=== PATIENT | female | born 1995 | race Caucasian/White ===

== ENCOUNTER 2018-11-26 14:19 | Inpatient (IN) | payer SELFPAY ==
[2018-11-26 14:29] VITALS: BMI 32.4
[2018-11-26] MEDS: Lactated Ringers 1,000 ML 50 ML IV (15:15)
[2018-11-26] MEDS: Oxytocin 30 units/NS 500 ml 30 UNITS/500 ML IV.SOLN IV (15:32)
--- NOTE | 2018-11-26 15:40 | PCM.HP.OB ---
- Problem List (1) Prolonged rupture of membranes Status: Acute History Date of Admission: 11/26/18 Final HELDER: 12/11/18 Gestational age: 37 Weeks and 6 Days History of this : This is a 23 year-old, G 1P0 at 37 weeks weeks gestational age with spontaneous rupture of membranes 19 hours. Patient has had irregular contractions but has had a stall in her labor progress. 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 She denies any fevers or significant abdominal pain outside of contractions. She has had normal blood pressures and has not had any testing other than hemoglobins via fingerstick and urinalysis for protein and glucose which have been negative. Fundal heights have been appropriate slightly small for gestational age throughout the . Allergies No Known Allergies Allergy (Verified 11/26/18 14:30) Home Medications: Home Medications Iron 1 tab PO DAILY 11/26/18 Vits [Prenatabs FA ] 1 tab PO DAILY 11/26/18 Smoking Status: Never smoker Alcohol: None Number of Fetus(es): 1 Heart Tracin moderate variability reactive no decelerations category I tracing [place]: irregular History Past Pregnancies: Past Pregnancies Delivery Date Name GA/Weeks Outcome Route Weight Infant Gender Labor Length Anesthesia Delivery Location Provider FOB Labs: Mom's Labs & Results 11/26/18 11/26/18 11/26/18 15:15 15:15 15:15 WBC Pending RBC Pending Hgb Pending Hct Pending MCV Pending MCH Pending MCHC Pending RDW Pending RDW Differential Pending Plt Count Pending Neut % (Auto) Pending Absolute Neuts (auto) Pending Total Counted Pending RPR Pending Hep Bs Antigen Hepatitis C Ab (EIA) HIV 1&2 Antibody Rubella IgG Antibody Pending Blood Type Antibody Screen 11/26/18 11/26/18 11/26/18 15:15 15:15 15:15 WBC RBC Hgb Hct MCV MCH MCHC RDW RDW Differential Plt Count Neut % (Auto) Absolute Neuts (auto) Total Counted RPR Hep Bs Antigen Pending Hepatitis C Ab (EIA) Pending HIV 1&2 Antibody Pending Rubella IgG Antibody Blood Type Pending Antibody Screen Pending Expected Infant Delivery Method: Spontaneous Vaginal Review of Systems Constitutional: Denies: Fever, Malaise Eyes: Denies: Blurred vision, Vision Change HEENT: Denies: Head Aches, Visual Changes Cardiovascular: Denies: Chest Pain, Palpitations Respiratory: Denies: Cough, Shortness of Breath, Wheezing Gastrointestinal: Denies: Abdominal Pain, Diarrhea, Nausea, Vomiting Genitourinary: Denies: Dysuria, Hematuria Gynecological: Reports: Vaginal bleeding, Vaginal discharge Musculoskeletal: Denies: Joint Pain, Muscle pain Skin: Denies: Lesions, Rash Neurological: Denies: Blurred vision, Focal weakness, Headaches Psychiatric: Denies: Anxiety, Depression Endocrine: Denies: Heat/ Cold Intolerance Hematologic/ Lymphatic: Denies: Easy Bruising, Easy Bleeding Physical Exam General: Alert, Cooperative, No apparent distress HEENT: Atraumatic, Normocephalic. Negative for: Thyromegaly, Lymphadenopathy Cardiovascular: Regular rate Lungs: Normal air movement Abdomen: Soft, Non Tender, Gravid Neurological: Deep Tendon Reflexes 2+/4 and Symmetrical, Neuro grossly intact. Negative for: Clonus UROLOGIC NURSE: Normal external genitalia. Negative for: Vulvar lesions Estimated gestational size: Appropriate for gestational size Presentation: Cephalic Cervix Dilation (cm): 5 Station: -1 Effacement (%): 80 Assessment/Plan All Active Problems Prolonged rupture of membranes (Acute) This is a 23 year-old, at 37 weeks gestational age presnts with PROM plan starting ampicillin for antibiotic prophylaxis, no signs of chorioamnionitis. will draw panel. pitocin per protocol
--- NOTE | 2018-11-26 15:44 | HP.PCM_ITS ---
- Problem List (1) Prolonged rupture of membranes Status: Acute History Date of Admission: 11/26/18 Final HELDER: 12/11/18 Gestational age: 37 Weeks and 6 Days History of this : This is a 23 year-old, G 1P0 at 37 weeks weeks gestational age with spontaneous rupture of membranes 19 hours. Patient has had irregular contractions but has had a stall in her labor progress. 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 She denies any fevers or significant abdominal pain outside of contractions. She has had normal blood pressures and has not had any testing other than hemoglobins via fingerstick and urinalysis for protein and glucose which have been negative. Fundal heights have been appropriate slightly small for gestational age throughout the . Allergies No Known Allergies Allergy (Verified 11/26/18 14:30) Home Medications: Home Medications Iron 1 tab PO DAILY 11/26/18 Vits [Prenatabs FA ] 1 tab PO DAILY 11/26/18 Smoking Status: Never smoker Alcohol: None Number of Fetus(es): 1 Heart Tracin moderate variability reactive no decelerations category I tracing [place]: irregular History Past Pregnancies: Past Pregnancies Delivery Date Name GA/Weeks Outcome Route Weight Infant Gender Labor Length Anesthesia Delivery Location Provider FOB Labs: Mom's Labs & Results 11/26/18 11/26/18 11/26/18 15:15 15:15 15:15 WBC Pending RBC Pending Hgb Pending Hct Pending MCV Pending MCH Pending MCHC Pending RDW Pending RDW Differential Pending Plt Count Pending Neut % (Auto) Pending Absolute Neuts (auto) Pending Total Counted Pending RPR Pending Hep Bs Antigen Hepatitis C Ab (EIA) HIV 1&2 Antibody Rubella IgG Antibody Pending Blood Type Antibody Screen 11/26/18 11/26/18 11/26/18 15:15 15:15 15:15 WBC RBC Hgb Hct MCV MCH MCHC RDW RDW Differential Plt Count Neut % (Auto) Absolute Neuts (auto) Total Counted RPR Hep Bs Antigen Pending Hepatitis C Ab (EIA) Pending HIV 1&2 Antibody Pending Rubella IgG Antibody Blood Type Pending Antibody Screen Pending Expected Infant Delivery Method: Spontaneous Vaginal Review of Systems Constitutional: Denies: Fever, Malaise Eyes: Denies: Blurred vision, Vision Change HEENT: Denies: Head Aches, Visual Changes Cardiovascular: Denies: Chest Pain, Palpitations Respiratory: Denies: Cough, Shortness of Breath, Wheezing Gastrointestinal: Denies: Abdominal Pain, Diarrhea, Nausea, Vomiting Genitourinary: Denies: Dysuria, Hematuria Gynecological: Reports: Vaginal bleeding, Vaginal discharge Musculoskeletal: Denies: Joint Pain, Muscle pain Skin: Denies: Lesions, Rash Neurological: Denies: Blurred vision, Focal weakness, Headaches Psychiatric: Denies: Anxiety, Depression Endocrine: Denies: Heat/ Cold Intolerance Hematologic/ Lymphatic: Denies: Easy Bruising, Easy Bleeding Physical Exam General: Alert, Cooperative, No apparent distress HEENT: Atraumatic, Normocephalic. Negative for: Thyromegaly, Lymphadenopathy Cardiovascular: Regular rate Lungs: Normal air movement Abdomen: Soft, Non Tender, Gravid Neurological: Deep Tendon Reflexes 2+/4 and Symmetrical, Neuro grossly intact. Negative for: Clonus CASH MANAGEMENT COORDINATOR: Normal external genitalia. Negative for: Vulvar lesions Estimated gestational size: Appropriate for gestational size Presentation: Cephalic Cervix Dilation (cm): 5 Station: -1 Effacement (%): 80 Assessment/Plan All Active Problems Prolonged rupture of membranes (Acute) This is a 23 year-old, at 37 weeks gestational age presnts with PROM plan starting ampicillin for antibiotic prophylaxis, no signs of chorioamnionitis. will draw panel. pitocin per protocol
[2018-11-26 16:09] LABS: Absolute Lymphocyte Count 2.15 X10^3/ul (0.83-4.51); Absolute Neutrophil Count 9.4 X10^3/uL (2.0-7.7); Basophil# 0.02 X10^3/uL; Basophil% 0.2 % (0-1); Eosinophil# 0.14 X10^3/uL; Eosinophils% 1.1 % (0-5); Hematocrit 35.1 % (37-47); Hemoglobin 11.8 g/dl (12.0-15.0); Lymphocyte # 2.15 X10^3/ul (4.0); Lymphocyte % 17.2 % (19-41); Mean Corp Hgb Conc 33.6 g/gl (32-36); Mean Corpuscular Hgb 28.9 pg (27.0-32.0); Mean Corpuscular Volume 85.8 fL (81-99); Mean Platelet Vol. 9.7 fl (6.2-12.0); Monocyte# 0.74 X10^3/uL; Monocyte% 5.9 % (0-10); Neutrophil # 9.39 X10^3/uL (2.7-7.7); Neutrophil % 75.4 % (47-70); Platelet Count 349 K/mm3 (150-450); RBC Distribution Width CV 13.6 % (11.6-14.6); RBC Distribution Width SD 42.7 fl (35.1-43.9); Red Blood Count 4.09 M/mm3 (4.2-5.4); White Blood Count 12.5 K/mm3 (4.4-11.0)
[2018-11-26 16:11] LABS: POSITIVE COUNT NO; POSITIVE DIFFERENTIAL NO; POSITIVE MORPHOLOGY NO
[2018-11-26 16:33] LABS: Rubella IgG 47.3 IU/mL
[2018-11-26 17:08] LABS: HIV - WCH Non-Reactive (Nonreactive)
[2018-11-26 17:08] LABS: Group B Strep DNA By PCR Negative (Negative); Internal Control PASS; Probe Check PASS; Specimen Processing Control PASS
[2018-11-26 17:09] LABS: Mucous, Urine 0 SEEN /hpf (<or=2+)
[2018-11-26 17:24] LABS: Color, Urine Yellow (Yellow); Glucose, Dipstick Normal (Normal); Ketone-Dipstick 50 mg/dl (Negative); Leukocyte Esterase-Dipstick 500 /ul (Negative); Nitrite-Dipstick Negative (Negative); Occult Blood-Urine 250 /ul (Negative); Protein-Dipstick 15 mg/dl (Negative); Specific Gravity, Urine 1.015 (1.002-1.030); Urine Bilirubin Dipstick Negative (Negative); Urine Clarity Sl. Cloudy (Clear); Urine Urobilinogen Normal (Normal)
[2018-11-26 17:30] LABS: Amphetamine Urine VISTA NEGATIVE (<1000 ng/mL); Barbiturate Urine VISTA NEGATIVE (< 200 ng/mL); Benzodiazepine Urine VISTA NEGATIVE (< 200 ng/mL); Cocaine Urine VISTA NEGATIVE (< 300 ng/mL); Ecstacy Urine VISTA NEGATIVE (< 500 ng/mL); Methadone Urine VISTA NEGATIVE (< 300 ng/mL); PCP Urine VISTA NEGATIVE (< 25 ng/mL); THC Urine VISTA NEGATIVE (< 50 ng/mL); Vista UDS pH Range 6
[2018-11-26 17:37] LABS: Chlamydia Trachomatis by PCR Negative (Negative); Neisserai gonorrhoeae by PCR Negative (Negative); Probe Check PASS; Sample Adequacy Control PASS; Specimen Processing Control PASS
[2018-11-26 17:46] LABS: Red Blood Cells-Urine 50-100 SEEN /hpf (0-5)
[2018-11-26 17:47] LABS: Bacteria RARE /hpf (None Seen); Squamous Epithelial Cells - UA 0-5 SEEN /hpf (5-10); White Blood Cells 10-25 SEEN /hpf (0-5)
[2018-11-26] MEDS: Nalbuphine 10 MG/ML Ampul IV (19:03)
--- NOTE | 2018-11-26 20:34 | OP.PCM_ITS ---
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 The head was delivered atraumatically. The anterior and posterior shoulders delivered without complication followed by the rest of the infant and the infant was placed on the maternal abdomen. Delayed cord clamping was employed for approximately 60 seconds. Cord was clamped and cut and gentle traction was a pplied to the cord and the placenta delivered spontaneously immediately following it was noted to be intact with three-vessel cord. The perineum and vagina were inspected and noted to have a small vaginal perineal laceration first-degree that was hemostatic and did not require repair. EBL was 300 cc. Patient and infant tolerated delivery well. Presentation: MARK Placental Delivery Description: Spontaneous Placenta Disposition: [facility]
[2018-11-26] MEDS: Oxytocin 30 units/NS 500 ml 30 UNITS/500 ML IV.SOLN 334 UNITS IV (20:46)
[2018-11-26] MEDS: Oxytocin 30 units/NS 500 ml 30 UNITS/500 ML IV.SOLN 167 UNITS IV (21:16)
[2018-11-27 00:05] VITALS: BP 106/64; PULSE 104; RESP 17
[2018-11-27 02:00] VITALS: BP 128/81; PULSE 63; RESP 18; TEMP 36.6
[2018-11-27 07:50] VITALS: BP 118/71; PULSE 75; RESP 16; TEMP 36.7; O2SAT 97
--- NOTE | 2018-11-27 08:11 | PN.OBGYN_ITS ---
Patient Problems: Active and Suspected Problems Prolonged rupture of membranes (Acute) Subjective: doing well no complaints pain controlled no CP SOB N V ambulating well tolerating po lochia moderate, going well - Physical Exam General: Alert, Oriented x3 Abdomen: Soft, Non Tender, - - FF below U Vital Signs Temp Pulse Resp BP 97.8 F 63 18 128/81 H 11/27/18 02:00 11/27/18 02:00 11/27/18 02:00 11/27/18 02:00 Weight: 189 lb Body Mass Index (BMI) 32.4 Intake and Output for Last 24 Hours 11/25/18 11/26/18 11/27/18 23:59 23:59 23:59 Intake Total 1876 Output Total 500 / 500 Balance 1876 -500 / -500 Laboratory Tests Past 24 Hrs 11/26/18 11/26/18 11/26/18 15:15 15:15 15:15 WBC 12.5 H RBC 4.09 L Hgb 11.8 L Hct 35.1 L MCV 85.8 MCH 28.9 MCHC 33.6 RDW 13.6 RDW Differential 42.7 Plt Count 349 MPV 9.7 Immature Gran % (Auto) 0.200 Neut % (Auto) 75.4 H Lymph % (Auto) 17.2 L [place] % (Auto) 5.9 Eos % (Auto) 1.1 Baso % (Auto) 0.2 Absolute Neuts (auto) 9.4 H Absolute Lymphs (auto) 2.15 Total Counted Not Reportable Urine Color Urine Clarity Urine pH Ur Specific [place] Urine Protein Urine Glucose (UA) Urine Ketones Urine Occult Blood Urine Nitrite Urine Bilirubin Urine Urobilinogen Ur Leukocyte Esterase Urine RBC Urine WBC Ur Squamous Epith Cells Urine Bacteria Urine Mucus Urine Opiates Screen Urine Methadone Screen Ur Barbiturates Screen Ur Phencyclidine Scrn Ur Amphetamines Screen U Methamphetamin-MDMA U Benzodiazepines Scrn Urine Cocaine Screen U Cannabinoids Screen Ur Drug Screen Comment RPR Pending Chlam trachomat DNA PCR Hep Bs Antigen Hepatitis C Ab (EIA) HIV 1&2 Antibody N.gonorrhoeae DNA (PCR) Rubella IgG Antibody 47.3 Group B Strep DNA Specimen Comment Blood Type Antibody Screen 11/26/18 11/26/18 11/26/18 15:15 15:15 15:15 WBC RBC Hgb Hct MCV MCH MCHC RDW RDW Differential Plt Count MPV Immature Gran % (Auto) Neut % (Auto) Lymph % (Auto) [place] % (Auto) Eos % (Auto) Baso % (Auto) Absolute Neuts (auto) Absolute Lymphs (auto) Total Counted Urine Color Urine Clarity Urine pH Ur Specific [place] Urine Protein Urine Glucose (UA) Urine Ketones Urine Occult Blood Urine Nitrite Urine Bilirubin Urine Urobilinogen Ur Leukocyte Esterase Urine RBC Urine WBC Ur Squamous Epith Cells Urine Bacteria Urine Mucus Urine Opiates Screen Urine Methadone Screen Ur Barbiturates Screen Ur Phencyclidine Scrn Ur Amphetamines Screen U Methamphetamin-MDMA U Benzodiazepines Scrn Urine Cocaine Screen U Cannabinoids Screen Ur Drug Screen Comment RPR Chlam trachomat DNA PCR Hep Bs Antigen Pending Hepatitis C Ab (EIA) Pending HIV 1&2 Antibody Non-Reactive N.gonorrhoeae DNA (PCR) Rubella IgG Antibody Group B Strep DNA Specimen Comment Blood Type B POSITIVE Antibody Screen NEGATIVE 11/26/18 11/26/18 11/26/18 15:40 17:00 17:00 WBC RBC Hgb Hct MCV MCH MCHC RDW RDW Differential Plt Count MPV Immature Gran % (Auto) Neut % (Auto) Lymph % (Auto) [place] % (Auto) Eos % (Auto) Baso % (Auto) Absolute Neuts (auto) Absolute Lymphs (auto) Total Counted Urine Color Yellow Urine Clarity Sl. Cloudy Urine pH 6.0 Ur Specific [place] 1.015 Urine Protein 15 H Urine Glucose (UA) Normal Urine Ketones 50 H Urine Occult Blood 250 H Urine Nitrite Negative Urine Bilirubin Negative Urine Urobilinogen Normal Ur Leukocyte Esterase 500 H Urine RBC 50-100 SEEN Urine WBC 10-25 SEEN Ur Squamous Epith Cells 0-5 SEEN Urine Bacteria RARE Urine Mucus 0 SEEN Urine Opiates Screen NEGATIVE Urine Methadone Screen NEGATIVE Ur Barbiturates Screen NEGATIVE Ur Phencyclidine Scrn NEGATIVE Ur Amphetamines Screen NEGATIVE U Methamphetamin-MDMA NEGATIVE U Benzodiazepines Scrn NEGATIVE Urine Cocaine Screen NEGATIVE U Cannabinoids Screen NEGATIVE Ur Drug Screen Comment RPR Chlam trachomat DNA PCR Negative Hep Bs Antigen Hepatitis C Ab (EIA) HIV 1&2 Antibody N.gonorrhoeae DNA (PCR) Negative Rubella IgG Antibody Group B Strep DNA Negative Specimen Comment Not Reportable Blood Type Antibody Screen Medical Necessity - Tobacco Use Smoking Status: Never smoker Assessment/Plan All Active Problems Prolonged rupture of membranes (Acute) s/p PPD # 1 1. routine post delivery care 2. breast feeding- support given 3. rh positive 4. rubella immune 5. Home today
--- NOTE | 2018-11-27 08:11 | PCM.DC.VHY ---
Allergies/Adverse Reactions: Allergies No Known Allergies Allergy (Verified 11/26/18 14:30) Medications to take at Discharge Iron 1 tab PO DAILY 11/26/18 Vits [Prenatabs FA ] 1 tab PO DAILY 11/26/18 Primary Care Physician: Coretta Early,Out of [Primary Care Provider] - Test Results: Test results from this visit will be discussed in further detail at your follow-up appointment, if applicable.
--- NOTE | 2018-11-27 08:13 | PCM.DCVAG ---
Additional Instructions: If you experience any of the following, contact your healthcare provider. Bleeding that soaks a pad every hour for 2 hours Fever 100.4 or higher Unrelieved incision or abdominal pain Swelling, redness, discharge or bleeding from your incision or episiotomy site Your incision begins to separate Problems urinating (including inability to urinate or burning while urinating). Visual changes Severe headache Flu-like symptoms Pain or redness in one of both of your breasts Pain, warmth, tenderness or swelling in your legs, especially the calf area Frequent nausea and vomiting Symptoms of depression or anxiety If you experience any of the following, call 911 or go to the nearest Emergency Room. Chest pain Problems breathing Seizure activity Partial or complete paralysis of a body part, slurred speech, weakness or drooping of the face, or a sudden inability to walk or hold your balance Allergies/Adverse Reactions: Allergies No Known Allergies Allergy (Verified 11/26/18 14:30) Medications to take at Discharge Iron 1 tab PO DAILY 11/26/18 Vits [Prenatabs FA ] 1 tab PO DAILY 11/26/18 Primary Care Physician: Coretta Early,Out of [Primary Care Provider] - Test Results: Test results from this visit will be discussed in further detail at your follow-up appointment, if applicable.
--- NOTE | 2018-11-27 08:14 | DCINST_ITS ---
Additional Instructions: If you experience any of the following, contact your healthcare provider. * Bleeding that soaks a pad every hour for 2 hours * Fever 100.4 or higher * Unrelieved incision or abdominal pain * Swelling, redness, discharge or bleeding from your incision or episiotomy site * Your incision begins to separate * Problems urinating (including inability to urinate or burning while urinating). * Visual changes * Severe headache * Flu-like symptoms * Pain or redness in one of both of your breasts * Pain, warmth, tenderness or swelling in your legs, especially the calf area * Frequent nausea and vomiting * Symptoms of depression or anxiety If you experience any of the following, call 911 or go to the nearest Emergency Room. * Chest pain * Problems breathing * Seizure activity * Partial or complete paralysis of a body part, slurred speech, weakness or drooping of the face, or a sudden inability to walk or hold your balance Allergies/Adverse Reactions: Allergies No Known Allergies Allergy (Verified 11/26/18 14:30) Medications to take at Discharge Iron 1 tab PO DAILY 11/26/18 Vits [Prenatabs FA ] 1 tab PO DAILY 11/26/18 Primary Care Physician: Coretta Early,Out of [Primary Care Provider] - Test Results: Test results from this visit will be discussed in further detail at your follow- up appointment, if applicable.
[2018-11-27 12:20] VITALS: BP 127/75; PULSE 82; RESP 16; TEMP 36.6; O2SAT 97
[2018-11-27 15:46] VITALS: BP 117/76; PULSE 99; RESP 14; TEMP 36.4; O2SAT 99
[2018-11-27 20:45] VITALS: BP 133/80; PULSE 84; RESP 16; TEMP 36.3
[2018-11-28 15:07] LABS: HEPATITIS B SURFACE AG Negative (Negative); Hep C Antibodies <0.1 s/co ratio (0.0-0.9)
[2018-11-29 01:30] LABS: Rapid Plasmin Reagin (RPR) NONREACTIVE (NONREACTIVE)
== END 2018-11-27 23:11 | disposition home or self-care (01) | DRG 807 ==
PROVIDERS: Admitting Provider Obstetrics & Gynecology; Referring Provider Obstetrics & Gynecology; Visit Provider Obstetrics & Gynecology
DX: O42.02 Full-term premature rupture of membranes, onset of labor within 24 hours of rupture (principal); Z37.0 Single live birth; O70.0 First degree perineal laceration during delivery; Z3A.37 37 weeks gestation of pregnancy
CPT/HCPCS: 59050; 80307; 81001; 85025; 86592; 86703; 86762; 86803; 86850; 86900; 87081; 87340; 87491; 87591; 87653; 99218; J7120; G0378

== ENCOUNTER → 2023-01-19 | Outpatient (CLI) | payer SELFPAY ==
--- NOTE | 2023-01-19 13:14 | US_ITS ---
STUDY: SECOND AND THIRD TRIMESTER OBSTETRICAL ULTRASOUND - LIMITED REASON FOR EXAM: Female, 27 years old new care LMP: Not provided PRIOR ULTRASOUND: None. TECHNIQUE: Standard TECHNICAL QUALITY: Adequate. FINDINGS: There is a single intrauterine fetus. The fetus is in a cephalic presentation. There is demonstrated cardiac activity with a heart rate of 146 bpm. There is a normal amniotic fluid volume. The largest amniotic fluid pocket measures 2.7 x 5 point cm. The placenta is left lateral not low-lying There are Grade 0 placental changes. The cervix measures 4.2 cm in length. BIOMETRY: BPD: 8.99 cm: 36 weeks, 3 days HC: 32.94 cm: 37 weeks, 3 days AC: 30.29 cm: 34 weeks, 2 days FL: 6.68 cm: 34 weeks, 3 days age by current US: 36 weeks, 1 days. HELDER by current US: . Estimated weight: 2510 grams, +/- 377 grams, 24 percentile. US/OB Limited With Biometrics IMPRESSION: Viable intrauterine gestation. Mean gestational age based upon ultrasound parameters 36 weeks 1 day. Electronically Signed: Mat Connolly MD, [place] at 22:40 EDT ,
--- NOTE | 2023-01-19 13:14 | US_ITS ---
STUDY: OBSTETRICAL ULTRASOUND - BIOPHYSICAL PROFILE TWIN BABY A. REASON FOR EXAM: Female, 27 years old new care twin . LMP: Not provided. PRIOR ULTRASOUND: None. TECHNIQUE: Standard. TECHNICAL QUALITY: Adequate. FINDINGS: There is a single intrauterine fetus. The fetus is in a cephalic presentation. There is demonstrated cardiac activity with a heart rate of 148 bpm. There is a normal amniotic fluid volume. The largest amniotic fluid pocket measures 5.5 cm. The amniotic fluid index (JOURDAN) is 2.60 cm. The placenta is left lateral and not low-lying. There are Grade 2 placental changes. Age by LMP: 35 weeks, 5 days. HELDER by LMP: 02/18/2023.. age by prior US: 36 weeks, 1 days. HELDER by prior US: 02/15/2023. age by current US: 36 weeks, 1 days. HELDER by current US: 02/20/2023. Gender: BIOPHYSICAL PROFILE: Breathing Movements (FBM): 2 Gross Body Movements (GBM): 2 Tone (FT): 2 Amniotic Fluid Volume (AFV): 2 TOTAL SCORE: 8 / 8 IMPRESSION: Normal twin baby A biophysical profile of 8/8. Electronically Signed: Chang Diallo MD at 15:03 EDT , STUDY: OBSTETRICAL ULTRASOUND - BIOPHYSICAL PROFILE TWIN BABY B REASON FOR EXAM: Female, 27 years old new care twin . LMP: Not provided. PRIOR ULTRASOUND: None. TECHNIQUE: Standard. TECHNICAL QUALITY: Adequate. FINDINGS: There is a single intrauterine fetus. The fetus is in left oblique lie position. There is demonstrated cardiac activity with a heart rate of 136 bpm. There is a normal amniotic fluid volume. The largest amniotic fluid pocket measures 4.27 cm. The amniotic fluid index (JOURDAN) is 3.08 cm. The placenta is anterior and not low-lying. There are Grade 1 placental changes. Age by LMP: 35 weeks, 5 days. HELDER by LMP: 02/18/2023. age by prior US: 35 weeks, 3 days. HELDER by prior US: 02/20/2023. age by current US: 35 weeks, 3 days. HELDER by current US: 02/20/2023. Gender: BIOPHYSICAL PROFILE: Breathing Movements (FBM): 2 Gross Body Movements (GBM): 2 Tone (FT): 2 Amniotic Fluid Volume (AFV): 2 TOTAL SCORE: US/Biophysical Prof W/O Non Stres IMPRESSION: Normal biophysical profile of 04/10. Electronically Signed: Chang Diallo MD at 15:07 EDT ,
[2023-01-19 14:38] LABS: Absolute Lymphocyte Count 2.19 X10^3/uL (0.83-4.51); Absolute Neutrophil Count 5.6 X10^3/uL (2.0-7.7); Basophil# 0.04 X10^3/uL; Basophil% 0.5 % (0-1); Eosinophil# 0.14 X10^3/uL; Eosinophils% 1.6 % (0-5); Hematocrit 36.2 % (37-47); Hemoglobin 11.3 g/dL (12.0-15.0); Lymphocyte # 2.19 X10^3/ul (0.83-4.51); Lymphocyte % 25.6 % (19-41); Mean Corp Hgb Conc 31.2 g/dL (32-36); Mean Corpuscular Hgb 28.6 pg (27.0-32.0); Mean Corpuscular Volume 91.6 fL (81-99); Mean Platelet Vol. 10.9 fl (6.2-12.0); Monocyte# 0.55 X10^3/uL; Monocyte% 6.4 % (0-10); NRBC Flagged by Analyzer 0 % (0-5); Neutrophil % 65.5 % (47-70); Platelet Count 239 K/mm3 (150-450); RBC Distribution Width CV 14.9 % (11.6-14.6); RBC Distribution Width SD 49.9 fl (35.1-43.9); Red Blood Count 3.95 M/mm3 (4.2-5.4); White Blood Count 8.6 K/mm3 (4.4-11.0)
[2023-01-19 15:54] LABS: Glucose Challenge Gest 1H 50g 90 mg/dL (70-140)
[2023-01-19 16:19] LABS: HIV - WCH Non-Reactive (Nonreactive); Hepatitis B Surface Antigen Non-Reactive (Nonreactive); Hepatitis C Antibody Non-Reactive (Nonreactive); Rubella IgG Reactive (Nonreactive); Syphilis Antibodies Non-reactive
== END | disposition home or self-care (01) ==
PROVIDERS: Referring Provider Obstetrics & Gynecology; Visit Provider Obstetrics & Gynecology
DX: Z34.90 Encounter for supervision of normal pregnancy, unspecified, unspecified trimester (principal); Z3A.35 35 weeks gestation of pregnancy
CPT/HCPCS: 36415; 76816; 76819; 82950; 85025; 86703; 86762; 86780; 86803; 86850; 86900; 86901; 87086; 87088; 87340

== ENCOUNTER → 2023-01-26 | Outpatient (CLI) | payer SELFPAY ==
--- NOTE | 2023-01-26 12:01 | US_ITS ---
STUDY: OBSTETRICAL ULTRASOUND - twin ultrasound, twin A REASON FOR EXAM: Female, 27 years old wellbeing LMP: Unknown. PRIOR ULTRASOUND: 01/19/2023 TECHNIQUE: Transabdominal and Transvaginal TECHNICAL QUALITY: Adequate. FINDINGS: There is a single intrauterine fetus. The fetus is in a cephalic presentation. There is demonstrated cardiac activity with a heart rate of 147 bpm. There is a normal amniotic fluid volume. The largest amniotic fluid pocket measures 4.1 x 4 cm. The placenta is left lateral, not low-lying There are Grade 2 placental changes. age by prior US: 37 weeks, 1 days. HELDER by prior US: 02/18/2023. BIOPHYSICAL PROFILE: Breathing Movements (FBM): 2 Gross Body Movements (GBM): 2 Tone (FT): 2 Amniotic Fluid Volume (AFV): 2 TOTAL SCORE: 8 / 8 IMPRESSION: Normal biophysical profile of 8/8. Electronically Signed: Fredy Levine MD at 10:55 EDT , STUDY: OBSTETRICAL ULTRASOUND - BIOPHYSICAL PROFILE twin gestation, baby B REASON FOR EXAM: Female, 27 years old wellbeing LMP: Unknown. PRIOR ULTRASOUND: 01/19/2023 TECHNIQUE: Transabdominal TECHNICAL QUALITY: Adequate. FINDINGS: There is a single intrauterine fetus. The fetus is in a breech presentation. There is demonstrated cardiac activity with a heart rate of 135 bpm. There is a normal amniotic fluid volume. The largest amniotic fluid pocket measures 4.8 x 3.5 cm. The placenta is anterior in location and is not low lying. There are Grade 1 placental changes. age by prior US: 36 weeks, 3 days. HELDER by prior US: 02/20/2023. BIOPHYSICAL PROFILE: Breathing Movements (FBM): 2 Gross Body Movements (GBM): 2 Tone (FT): 2 Amniotic Fluid Volume (AFV): 2 TOTAL SCORE: US/Biophysical Prof W/O Non Stres IMPRESSION: Normal biophysical profile of 04/10. Electronically Signed: Fredy Levine MD at 10:57 EDT ,
[2023-01-30 21:07] LABS: Chlamydia By Nucleic Acid AMP Negative (Negative); Gonococcus By Nucleic Acid AMP Negative (Negative)
== END | disposition home or self-care (01) ==
PROVIDERS: Obstetrics & Gynecology; PCP Physician Assistant; Referring Provider Obstetrics & Gynecology; Visit Provider Obstetrics & Gynecology
DX: O09.90 Supervision of high risk pregnancy, unspecified, unspecified trimester (principal)
CPT/HCPCS: 76819; 87081; 87491; 87591

== ENCOUNTER 2023-02-07 04:05 | Inpatient (IN) | payer SELFPAY ==
[2023-02-07] VITALS (37 sets, daily range): BP systolic 127–152; BP diastolic 72–92; PULSE 80–100; RESP 14–18; TEMP 35.8–36.7; O2SAT 98–100; BMI 36.8
[2023-02-07] MEDS: Lactated Ringers 1,000 ML 50 ML IV (04:20)
[2023-02-07 04:33] LABS: Absolute Lymphocyte Count 2.45 X10^3/uL (0.83-4.51); Absolute Neutrophil Count 6.6 X10^3/uL (2.0-7.7); Basophil# 0.04 X10^3/uL; Basophil% 0.4 % (0-1); Eosinophil# 0.15 X10^3/uL; Eosinophils% 1.5 % (0-5); Hematocrit 37.8 % (37-47); Hemoglobin 12.6 g/dL (12.0-15.0); Lymphocyte # 2.45 X10^3/ul (0.83-4.51); Lymphocyte % 24.6 % (19-41); Mean Corp Hgb Conc 33.3 g/dL (32-36); Mean Corpuscular Hgb 28.3 pg (27.0-32.0); Mean Corpuscular Volume 84.9 fL (81-99); Mean Platelet Vol. 11.4 fl (6.2-12.0); Monocyte# 0.69 X10^3/uL; Monocyte% 6.9 % (0-10); NRBC Flagged by Analyzer 0 % (0-5); Neutrophil # 6.58 X10^3/uL (2.7-7.7); Platelet Count 306 K/mm3 (150-450); RBC Distribution Width CV 14.2 % (11.6-14.6); RBC Distribution Width SD 43.2 fl (35.1-43.9); Red Blood Count 4.45 M/mm3 (4.2-5.4)
--- NOTE | 2023-02-07 05:12 | HP.PCM.OB_ITS ---
HPI - General General Date of Admission: 02/07/23 HPI Narrative INOCENCIO DE LUNA, is a 27 y/o @ 38 weeks 3 days who presents to L&D in active labor. She is twin gestation (di/di) and both twins are vertex presentation. She plans to deliver without pain medication and is currently smi ling and breathing through contractions. Maternal Data Information HELDER Calculator Estimated Delivery Date Method Current WG Current Estimate 02/18/23 LMP (Certain) 38w 3d # 2 PFSH PFSH Medical History (Updated 02/07/23 @ 04:50 by Neena Sanchez) depression Twin gestation in third trimester Home Medications Iron 1 tab PO DAILY supplementation 11/26/18 [History Last Taken Unknown] vits,calcium no.78-iron fumarate-folic acid 29 mg-1 mg tablet (Prenatabs FA) 1 tab PO DAILY 11/26/18 [History Last Taken Unknown] Allergy/AdvReac Type Severity Reaction Status Date / Time No Known Allergies Allergy Verified 02/01/23 08:07 Family History Grandfather Heart disease CVA (cerebral vascular accident) Social History household members: spouse housing: house Smoking Status: Never smoker alcohol intake: never substance use type: does not use do you feel safe at home: Yes 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 Date Name GA/Weeks Outcome Route Bth Weight Gen Labor Lgth Anesthesia Del Locatn Provider FOB 11/26/18 nabeel live - full term 6lb 7 ounces 05/03/20 Radha Barker live - full term 7lbs 13 ounces Delivery Date: 11/26/18 Last Updated by: Stephany Pacheco MD AO in hospital, Delivery Date: 05/03/20 Last Updated by: Stephany Pacheco MD [facility] Visit Details Expected Delivery Route/Plan if vtx vtx Labor Preferences- CB/BF classes: [] labor support person: [] labor intervention preferences: [] pain management options preferred: [] cut cord/dad catch: [] : [] PP control planned: [] discussed possible routes of delivery and associated risks: [] special requests: [] Plans Covid status: [] Flu vaccine: [] Tdap vaccine: [] Rhogam: [] LARC form signed: [] Problem list reviewed and updated with the most current plan of care details and appropriate orders placed. Relevant counseling for the gestational age provided. Continue routine care and follow up unless otherwise noted in visit notes/problem list details OB Flowsheet Initial Weight: Not Recorded Date -?-?-?-?-?-?-?-?-?-?-?-?- EGA Weight BP Urine Prot -?-?--?-?-?-?-?-?-?-?-?-?- Glucose FHR FuHt Pres Dilation -?-?-?-?-?-?-?-?--?-?-?-?- Effaced St Visit Note 01/19/23 -?-?-?-?-?-?-?-?-?-?-?-?- 35w 5d 219 lb 2 oz 111/69 -?-?-?-?-?-?-?-?-?-?-?-?- A 140 -?-?-?-?-?-?-?-?-?-?-?-?- B 150 A -?-?-?-?-?-?-?-?-?-?-?-?- B -?-?-?-?-?-?-?-?-?-?-?-?- A -?-?-?-?-?-?-?-?-?-?-?-?- B A SM- no vb lof go od fm x 2, transfer of care from planned original home . -?-?-?-?-?-?-?-?-?-?-?-?- B 01/26/23 -?-?-?-?-?-?-?--?-?-?-?-?- 36w 5d 218 lb 4 oz 132/78 Nega tive -?-?-?-?-?-?-?-?-?-?-?-?- Negative A 144 -?-?-?-?-?-?-?-?-?-?-?-?- B 137 A Cephalic -?-?-?--?-?-?-?-?-?-?-?-?- B Breech 1 -?-?-?-?-?-?-?-?-?-?-?-?- 30 A -2 -?-?-?-?-?-?-?-?-?-?-?-?- B A JV- pt states th at she would prefer a section if both heads not down. we also discussed that if one is transverse there is a high possibility that the second baby could come out cephalic after the fist cephalic is delivered vaginally. gbs collected today. will schedule cs at 38 weeks and cancel if need be -?-?-?-?-?-?-?-?-?-?-?-?- B 02/01/23 -?-?-?-?-?-?-?-?-?-?-?-?- 37w 4d 217 lb 4 oz 121/79 Nega tive -?-?-?-?-?-?-?-?-?-?-?-?- Negative A -?-?-?-?-?-?-?-?-?-?-?-?- B A Cephalic -?-?-?-?-?-?-?-?-?-?-?-?- B Cephalic 3 -?-?-?-?-?-?-?-?-?-?-?-?- 60 A -2 -?-?-?-?-?-?-?-?-?-?-?-?- B A JV-both heads ar e facing down now and she would like to attempt a vaginal delivery if possible. she prefers sunday next week. call to L&D to find out about opening and will call patient back with availability. -?-?-?-?-?-?-?-?-?-?-?-?- B ROS Constitutional Constitutional: Denies change in weight, fatigue, fever(s), headache(s), poor appetite or weakness Eyes Eyes: Denies blurry vision, change in vision, seeing flashes or spots in vision ENT HEENT: Denies dizziness, headache(s), loss taste/smell or sore throat Cardiovascular Cardiovascular: Denies chest pain, dizziness, dyspnea, irregular heart rhythm, leg edema, palpitations, rapid heart rate or vomiting Respiratory/Chest Respiratory/Chest: Denies chest tightness, cough, dyspnea or breast pain Gastrointestinal Gastrointestinal: Denies abdominal pain, anorexia, constipation, cramping, diarrhea, hemorrhoids, vomiting or weight changes Genitourinary Genitourinary: Denies dysuria, flank pain, genital lesions, genital pain, urinary frequency or urinary urgency Musculoskeletal Musculoskeletal: Denies back pain, difficulty walking, joint pain, limited range of motion, muscle cramps or numbness Integumentary Integumentary: Denies lesions or unusual bruising Neurologic Neurologic: Denies abnormal movements, abnormal speech, dizziness, numbness, seizure-like activity or syncope Psychiatric Psychiatric: Denies anxiety, behavioral changes, change in appetite, change in libido, cognitive impairment, confusion, depression, difficulty concentrating, hallucinations or suicidal thoughts Endocrine Endocrinology: Denies excessive sweating, polydipsia or polyuria Hematologic/Lymphatic Hematologic/Lymphatic: Denies easy bleeding, easy bruising or lymphadenopathy Allergic/Immunologic Allergic/Immunologic: Denies itchy eyes, lip swelling, seasonal rhinorrhea, rhinitis, throat swelling, tongue swelling, eczemia, wheezing or asthma Vital Signs Vital Signs Vital Signs: 02/07/23 04:21 02/07/23 04:26 02/07/23 04:26 Temperature 98.1 F Temperature Source Pulse Rate 99 Blood Pressure 134/92 H BP Systolic 134 BP Diastolic 92 02/07/23 04:41 02/07/23 04:41 02/07/23 04:33 Temperature Temperature Source Temporal Pulse Rate 89 Blood Pressure 140/88 H BP Systolic 140 BP Diastolic 88 02/07/23 04:33 Temperature 98.1 F Temperature Source Pulse Rate Blood Pressure BP Systolic BP Diastolic Weight Weight: 214 lb 6.4 oz Body Mass Index (BMI) 36.8 Physical Exam Const alert, oriented x3, no apparent distress and healthy appearing General Appearance: cooperative; Negative for anxious HEENT normocephalic Face and Sinus: normal facial exam Eyes EOMs intact bilaterally and no scleral icterus General Eye: normal appearance of both eyes Neck full ROM and supple Lymph Lymphatic: no lymphadenopathy noted Chest Chest: abnormal inspection of the chest Resp normal respiratory effort Effort and Inspection: able to speak in complete sentences Cardio regular rate GI soft to palpation and non-tender Inspection: gravid Palpation: soft; Negative for tender external exam normal Bimanual Exam - Vag & Uterus: other cervix is now 7.5/90/-1 Amniotic Fluid: ROM+plus Back/Spine no CVA tenderness Extremity normal to inspection, full ROM and no clubbing, cyanosis or edema General Extremity: Negative for calf tenderness or edema Skin Lesions: no lesions Rashes: no rashes Psych mental status grossly normal Labs Labs Labs: Blood Type B POSITIVE Antibody Screen NEGATIVE Hct 37.8 % (37-47) Hgb 12.6 g/dL (12.0-15.0) Obstetrics US Syphilis Total Ab Non-reactive Rubella IgG Antibody Reactive (Nonreactive) Hep Bs Antigen Non-Reactive (Nonreactive) Chlamydia DNA (PREET) Negative (Negative) Neisseria gonorrhoeae DNA (PREET) Negative (Negative) HIV 1&2 Antibody Non-Reactive (Nonreactive) Glucose 1 Hr 50 gm 90 mg/dL (70-140) Group B Strep DNA Negative (Negative) Rhogam given: No Assessment & Plan (1) Supervision of high-risk : COMMENT: PRR HELDER 02/18/23 Radha Adrian Jose Francisco (2) : QUALIFIERS: Weeks of gestation: 37 weeks Qualified Code(s): Z3A.37 - 37 weeks gestation of COMMENT: Neg GBS. DWAYNE 35 weeks from Inocencio miller (3) Twin gestation in third trimester: COMMENT: Lawrence based on previous scan as stated by reference test clerk. IOl scheduled for 02/07 @ 7 with JV PLAN: Plan Patient presents IAL, plan expectant management for , pitocin/AROM PRN if needed. Pain management: none at this time . GBS negative. Management of any complications: none I have reviewed the [facility] and made any clinically relevant updates.
[2023-02-07 05:18] LABS: Syphilis Antibodies Non-reactive
--- NOTE | 2023-02-07 06:07 | DCINST_ITS ---
Discharge Instructions Diet Discharge Diet: No restrictions Activity Discharge Activity: Return to Normal Activity, May Not Drive (while taking narcotic pain medications.) and May Shower May resume sexual activity in: 4-6 weeks Dressing / Incision Call your doctor if your incision/area has: Continuous Slow Oozing, Sudden Increased Bleeding, Increased Pain/ Swelling, Increased Redness and Foul Smelling Discharge Follow Up Care Please Follow Up With: Rola Hurt DO When: Call [phone] to make an appointment with your doctor in 6 weeks. If you had elevated blood pressure or 4th degree laceration, you will need to be seen in 2 weeks. Test Results: Test results from this visit will be discussed in further detail at your follow- up appointment, if applicable. Discharge Plan Admission Admit Date/Time: 02/07/23 04:05 Attending Provider: Anitra Sanford Primary Care Provider: Arash Anderson Discharge Orders/Prescriptions Prescriptions: No Action vit,[id number] [Prenatabs FA] 1 TABLET tablet 1 tab PO DAILY Iron 1 tab PO DAILY Referrals / Follow Up: Arash Anderson PA-C [Primary Care Provider] -
[2023-02-07] MEDS: Oxytocin 15 Units/NS 250ml 15 UNITS/250 ML IV.SOLN 2 UNITS IV (06:15)
--- NOTE | 2023-02-07 07:19 | OP.PCM_ITS ---
Assessment & Plan (1) Supervision of high-risk : COMMENT: PRR HELDER 02/18/23 PC Pretty Radha Jose Francisco (2) : QUALIFIERS: Weeks of gestation: 37 weeks Qualified Code(s): Z3A.37 - 37 weeks gestation of COMMENT: Neg GBS. DWAYNE 35 weeks from Leatha miller (3) Twin gestation in third trimester: COMMENT: Lawrence based on previous scan as stated by net software engineer. IOl scheduled for 02/07 @ with JV Maternal Data Information HELDER Calculator Estimated Delivery Date Method Current WG Current Estimate 02/18/23 LMP (Certain) 38w 3d # 2 Final HELDER: 02/18/23 Final HELDER Source: LMP Gestational age: 38 weeks 3 days Doctor Who Attended Delivery: Brien Galan Vaginal Delivery Maternal Presentation Maternal Presentation: Active Labor Type of Induction: Pitocin and Amniotomy Operative Information Date of Procedure: 02/07/23 Pre-Operative Diagnosis: @ 38 weeks 3 days, di/di twin gestation, active labor Post-Operative Diagnosis: @ 38 weeks 3 days, di/di twin gestation, active labor Type of Anesthesia: None Estimated Blood Loss: 100cc Findings Description of Procedure: Patient began pushing and delivered the head in the MARK presentation. The head was delivered atraumatically [and a loose nuchal cord ?1 was identified and easily reduced over the infant's head]. The anterior and posterior shoulders delivered without complication followed by the rest of the infant and the infant was placed on the maternal abdomen. Delayed cord clamping was employed for approximately 60 seconds. Cord was clamped and cut. The second baby then descended in a vertex presentation within 3 minutes and delivered in the OP position. The infant was crying and vigorous and moving all extremities. The cord was clamped and cut at 1 minute. Gentle traction was applied to the cord and the placenta delivered spontaneously immediately following it was noted to b e intact with three-vessel cord x 2. The perineum and vagina were inspected and noted to have no laceration. EBL was 100 cc. Patient and tolerated delivery well. Presentation: Vertex Amniotic Membrane Rupture Type: Spontaneous Amniotic Fluid Description: Clear Placental Delivery Description: Spontaneous Placenta Disposition: [facility] Cord Vessel Description: 3 Vessels Cord Entanglement: None A Gender: Male (1 minute): 8 (5 minute): 9 Delayed Cord Clamping: Yes Baby B Information Amniotic Membrane Rupture Type: Artificial Presentation: Vertex Operative Information Mode of Delivery: Vaginal Cord Vessel Description: 3 Vessels Cord Entanglement: None Infant B gender: Male (1 minute): 9 (5 minute): 9 Delayed Cord Clamping: Yes Multi Select Codes Urinary/Genital Urinary/Genital CPT Codes: 10209 Vaginal Delivery global pkg and Other Procedure See Report (twin vaginal delivery )
[2023-02-07] MEDS: Oxytocin 15 Units/NS 250ml 15 UNITS/250 ML IV.SOLN 83 UNITS IV (08:52)
[2023-02-08 00:26] VITALS: BP 130/74; PULSE 76; RESP 18; TEMP 36.3
[2023-02-08 04:01] VITALS: BP 132/77; PULSE 86; RESP 16; TEMP 35.9
[2023-02-08 04:02] VITALS: BP 132/77; PULSE 86
--- NOTE | 2023-02-08 07:21 | PCM.PN.OB ---
Subjective Subjective Patient doing well without complaints. Tolerating PO. Ambulating and voiding without difficulty. feeding well. Denies chest pain, shortness of breath, calf pain/swelling, fevers, chills, lightheadedness. Objective Data Objective Data Vital Signs: Vital Signs Temp Pulse Resp BP Pulse Ox O2 Del Method 96.7 F L 86 16 132/77 H 98 Room Air 02/08/23 04:01 02/08/23 04:02 02/08/23 04:01 02/08/23 04:02 02/07/23 15:55 02/08/23 04:01 Oxygen Delivery Method Room Air Weight: 214 lb 6.4 oz Body Mass Index (BMI) 36.8 Intake & Output: Intake and Output for Last 24 Hours 02/06/23 02/07/23 02/08/23 23:59 23:59 23:59 Intake Total 637 / 637 Output Total 1100 / 1100 Balance -463 / -463 Lab / Micro Data Result Diagrams: 02/07/23 04:20 ROS Constitutional Constitutional: Reports systems reviewed and no addt'l complaints, except as documented Cardiovascular Cardiovascular: Reports systems reviewed and no addt'l complaints, except as documented Respiratory/Chest Respiratory/Chest: Reports systems reviewed and no addt'l complaints, except as documented Gastrointestinal Gastrointestinal: Reports systems reviewed and no addt'l complaints, except as documented Physical Exam Const alert, oriented x3 and no apparent distress HEENT Head and Scalp: atraumatic Resp normal respiratory effort GI soft to palpation and non-tender Bimanual Exam - Vag & Uterus: uterus non-tender Uterus Palpation: uterus fundus firm (below Umbilicus) Assessment & Plan (1) Vaginal delivery: PLAN: Plan vaginal delivery routine care PP
--- NOTE | 2023-02-08 07:22 | DCINST_ITS ---
Discharge Instructions Diet Discharge Diet: No restrictions Activity Discharge Activity: Return to Normal Activity, May Drive, May Shower and May Take a Tub Bath (in 4 weeks) May resume sexual activity in: 4-6 weeks Weight Bearing Status: Full weight bearing Lifting Restrictions: none Dressing / Incision Call your doctor if your incision/area has: Continuous Slow Oozing, Sudden Increased Bleeding, Increased Pain/ Swelling, Increased Redness and Foul Smelling Discharge Call your doctor if you observe: Fever of 101 or Higher, Inability to urinate, Using more than 1 pad per hour (for more than 2 hours in a row or more), Shortness of breath, Dizziness, Chest pain and - (headache not controlled with tylenol, change in vision) Follow Up Care Please Follow Up With: Rola Hurt DO When: in 6 weeks for visit, call the office to make the appointment. If you had elevated blood pressures call the office to be seen within 1 week. Test Results: Test results from this visit will be discussed in further detail at your follow- up appointment, if applicable. Discharge Plan Admission Admit Date/Time: 02/07/23 04:05 Attending Provider: Rola Hurt Primary Care Provider: Arash Anderson Consulting Providers: Anitra Sanford Discharge Orders/Prescriptions Prescriptions: No Action Prenatabs FA 1 TABLET tablet 1 tab PO DAILY Iron 1 tab PO DAILY Referrals / Follow Up: Arash Anderson PA-C [Primary Care Provider] - Disposition Disposition (needs filled in before D/C Order can be placed): Home, Self Care
[2023-02-08 08:10] VITALS: BP 121/78; PULSE 88; RESP 16; TEMP 36.3
[2023-02-08 08:26] VITALS: BP 121/78; PULSE 88; TEMP 36.3
--- NOTE | 2023-03-15 08:28 | NURSING ---
Late entry of operative record to reflect the vaginal delivery that occurred in the OR. Operative record was entered by RN on the chart instead of the mothers chart. Corrected today and charges will be corrected.
== END 2023-02-08 11:00 | disposition home or self-care (01) | DRG 807 ==
PROVIDERS: Admitting Provider Obstetrics & Gynecology; PCP Physician Assistant; Referring Provider Obstetrics & Gynecology; Visit Provider Obstetrics & Gynecology
DX: O30.043 Twin pregnancy, dichorionic/diamniotic, third trimester (principal); Z37.2 Twins, both liveborn; O69.81X1 Labor and delivery complicated by cord around neck, without compression, fetus 1; Z3A.38 38 weeks gestation of pregnancy
CPT/HCPCS: 59025; 59050; 85025; 86780; 86850; 86900; 86901; 99221; J7120; G0378